=== PATIENT | male | born 1975 | race Caucasian/White ===

== ENCOUNTER 2019-01-10 14:48 | Inpatient (IN) | payer OTHER ==
[2019-01-10] MEDS ORDERED: NACL 0.9% 1000 ML IV ONE ×2 (15:06→15:10)
--- NOTE | 2019-01-10 15:06 | Emergency Department Report ---
Chief Complaint: Abdominal Pain Stated Complaint: RT LEG SHARP PAIN Time Seen by Provider: 01/10/19 15:03 - HPI History of Present Illness: rlq pain, upon waking n/v n bm yesterday no fever at home rx none pmh none psh none no cig/drugs/ etoh mom aw dad aw mse completed MSE screening note: Focused history and physical exam performed. Due to findings the following was ordered: ED Disposition for MSE Condition: Stable
[2019-01-10] MEDS ORDERED: MAXIPIME/NS 2 GM/100 ML 2 GM/100 ML BAG IV ONE (15:10)
[2019-01-10] MEDS ORDERED: FLAGYL 500 MG/100 ML 500 MG/100 ML BAG IV ONE (15:11)
[2019-01-10] MEDS ORDERED: TYLENOL PO ONE (15:23)
[2019-01-10] MEDS ORDERED: TYLENOL ONE (15:25)
--- NOTE | 2019-01-10 15:40 | Emergency Department Report ---
HPI - General Chief Complaint: Abdominal Pain Time Seen by Provider: 01/10/19 15:03 - HPI HPI: 43-year-old male presents to the emergency department with complaint of a one-day history of right lower quadrant abdominal pain, shortness of breath, mild cough, fever. He presents as a "sepsis. He is visiting here from [place] and has been here since the of this month, 11 days ago. He denies any past medical history. He denies any tobacco or illicit drug use or abuse. He has not taken anything for his symptoms prior to presentation. He has one episode of associated nausea and vomiting. He denies any problems with urination or bowel movements. ED Past Medical Hx - Past Medical History Previous Medical History?: No - Surgical History Past Surgical History?: No - Social History Smoking Status: Never Smoker Substance Use Type: None ED Review of Systems ROS: Stated complaint: RT LEG SHARP PAIN Other details as noted in HPI Constitutional: chills, fever Eyes: denies: eye pain, vision change ENT: denies: ear pain, throat pain Respiratory: cough, shortness of breath Cardiovascular: denies: chest pain, edema Gastrointestinal: abdominal pain, nausea, vomiting Genitourinary: denies: dysuria, discharge Musculoskeletal: denies: back pain, arthralgia Skin: denies: rash, lesions Neurological: denies: headache, weakness Physical Exam - Physical Exam Vital Signs: Vital Signs 01/10/19 15:06 Temperature 102.2 F H Pulse Rate 136 H Respiratory 20 Rate Blood Pressure 115/71 O2 Sat by Pulse 93 Oximetry ED Course Vital Signs 01/10/19 15:06 Temperature 102.2 F H Pulse Rate 136 H Respiratory 20 Rate Blood Pressure 115/71 O2 Sat by Pulse 93 Oximetry - Consultations Consultation #1: Last night I had spoken to the general surgeon, Dr. Whitaker, regarding the patient's CT findings of acute appendicitis as well as his full case presentation. Dr. Whitaker asked that the patient continue being resuscitated overnight and he will most likely taken to the operating room Thursday01/11/19 10:24 ED Medical Decision Making - Lab Data Result diagrams: 01/10/19 15:20 01/10/19 15:20 - EKG Data -: EKG Interpreted by Me EKG shows normal: sinus rhythm (PACs), axis, intervals, QRS complexes, ST-T waves (there is some early repolarization) Rate: tachycardia (129 bpm) - EKG Data When compared to previous EKG there are: previous EKG unavailable Interpretation: other (sinus tachycardia, normal axis, normal intervals, PACs, early repolarization) - Radiology Data Radiology results: report reviewed, image reviewed interpreted by me: Chest x-ray does not show any pneumothorax, pleural effusion, pneumonia or obvious focal consolidation. Abdominal x-ray shows nonspecific nonobstructive bowel gas PROCEDURE: CT ANGIO CHEST TECHNIQUE: Following administration of IV contrast axial helical imaging was performed through the chest with maximum intensity projection images obtained. HISTORY: SOB, elevated dimer COMPARISONS: CT abdomen and pelvis also performed today FINDINGS: Visualization of fine detail is somewhat limited by motion artifact. There is dependent atelectasis in both lung bases. There is no evidence of infiltrate, pneumothorax or pleural fluid collection. The trachea and bronchi are patent. The heart appears to be normal size. The thoracic aorta is normal in appearance. There is no evidence of pathologic intrathoracic adenopathy by CT size criteria. No filling defects are demonstrated within the central pulmonary arteries. However, evaluation for the presence or absence of segmental pulmonary artery emboli is significantly limited by motion artifact. Segmental pulmonary artery emboli could be missed or overcalled due to motion artifact. The visualized portion of the upper abdomen is notable for evidence of fatty infiltration of the liver. The bony structures are unremarkable. IMPRESSION: 1. Study degraded by motion artifact. 2. No definite evidence of an acute intrathoracic process. 3. No evidence of central pulmonary artery emboli. However, segmental pulmonary artery emboli could be missed or overcall due to motion artifact. This document is electronically signed by Misa Ahumada MD., January 10 2019 07:44:14 PM ET Transcribed By: ED Dictated By: MISA AHUMADA MD Electronically Authenticated By: MISA AHUMADA MD Signed Date/Time: 01/10/191944 PROCEDURE: CT ABDOMEN PELVIS W CON TECHNIQUE: Computerized axial tomography of the abdomen and pelvis was performed after the IV injection of iodinated nonionic contrast. HISTORY: RLQ abd pain COMPARISONS: None . FINDINGS: Visualized lower thorax: No significant abnormality. Liver: There is low-attenuation of the liver, compatible with fatty infiltration. Spleen: Normal size and attenuation. Gallbladder and biliary system: Normal. Pancreas: Normal. Adrenals: Normal. Kidneys: Normal. GI tract: The appendix is abnormally dilated and fluid-filled, measuring up to 1.5 cm in caliber. There is surrounding inflammation. Findings are compatible with acute appendicitis. No evidence of extraluminal air or abscess. No bowel obstruction or other areas of inflammation . Lymph nodes and mesentery: Normal. Vasculature: Normal.. Bladder: Normal. Reproductive organs: Normal. Peritoneum: No free fluid. Musculoskeletal structures: No significant abnormality. Other: None . IMPRESSION: Acute appendicitis. No evidence of extraluminal air or abscess. Findings were discussed by telephone with Dr. Hayes at 7:18 PM central standard time on 01/10/2019 Fatty infiltration of the liver . This document is electronically signed by Smitha Meneses MD., January 10 2019 08:21:48 PM ET Transcribed By: [facility] Dictated By: SMITHA MENESES M.D. Electronically Authenticated By: SMITHA MENESES M.D. Signed Date/Time: 01/10/192022 - Medical Decision Making This patient presents to the emergency department with complaint of right lower quadrant abdominal pain, shortness of breath, fever, tachycardia, nausea and vomiting. He presents as a "sepsis. He was started on a cephalosporin and Flagyl through triage. He was given 3.5 L of IV fluid for resuscitation. He was given Tylenol as an antipyretic. The majority of his labs came back unremarkable. He did have an elevated lactic acid level but upon repeat testing it was in the normal range. Chest x-ray and abdominal x-ray did not show any acute processes. The patient did have a very elevated d-dimer level so a CT angiography of the chest was done that did not show any signs of any pulmonary embolism, dissection, pneumonia. Due to the right lower quadrant abdominal pain with his other associated symptoms, a CT of the abdomen and pelvis with IV contrast was done and came back showing acute appendicitis. The general surgeon was contacted and has requested that the patient be admitted to the hospitalist service and continue resuscitation overnight and he will go to the OR in the morning. - Differential Diagnosis sepsis, pneumonia, appendicitis, colitis Critical Care Time: Yes Critical care time in (mins) excluding proc time.: 35 Critical care attestation.: If time is entered above; I have spent that time in minutes in the direct care of this critically ill patient, excluding procedure time. Critical care time spent on this patient and during his initial evaluation, multiple re- evaluations, ordering and interpretation of labs and imaging, discussion with the general surgeon and discussion with the patient/family. Critical Care Time: 35 minutes ED Disposition Clinical Impression: Volume depletion Acute appendicitis Qualifiers: Acute appendicitis type: with localized peritonitis Appendicitis gangrene presence: without gangrene Appendicitis perforation presence: without perforation Appendicitis abscess presence: without abscess Qualified Code(s): K35.30 - Acute appendicitis with localized peritonitis, without perforation or gangrene Sepsis Qualifiers: Sepsis type: sepsis due to unspecified organism Qualified Code(s): A41.9 - Sepsis, unspecified organism Disposition: OP ADMIT IP TO THIS HOSP Is pt being admited?: Yes Condition: Serious
[2019-01-10 15:47] LABS: Hematocrit 49.9 % (35.5-45.6); Hemoglobin 16.9 gm/dl (11.8-15.2); Mean Corpuscular HGB Conc 34 % (32-34); Mean Corpuscular Hemoglobin 29 pg (28-32); Mean Corpuscular Volume 87 fl (84-94); Platelet Count 204 K/mm3 (140-440); Red Blood Count 5.76 M/mm3 (3.65-5.03); Red Cell Distribution Width 14.1 % (13.2-15.2)
[2019-01-10 16:04] LABS: Alanine Aminotransferase 76 units/L (7-56); Albumin 4.7 g/dL (3.9-5); BUN/Creatinine Ratio 10; Blood Urea Nitrogen 10 mg/dL (9-20); Calcium 9.3 mg/dL (8.4-10.2); Hemolysis Index 23
[2019-01-10 16:06] LABS: Bilirubin,Urine NEG (Negative); Blood,Urine MOD (Negative); Color,Urine Yellow (Yellow); Mucus,Urine 3+ /HPF; Urobilinogen,Urine < 2.0 mg/dL (<2.0)
--- NOTE | 2019-01-10 17:00 | XRay Report ---
PROCEDURE: XR CHEST 1V AP TECHNIQUE: Single frontal view of the chest HISTORY: sepsis COMPARISONS: None. FINDINGS: The cardiomediastinal silhouette is normal in appearance. The lungs are clear without focal consolidation. No pleural effusion or pneumothorax. No acute bony or soft tissue abnormality. IMPRESSION: No acute cardiopulmonary disease. This document is electronically signed by Josefa Roldan MD., January 10 2019 04:58:32 PM ET
[2019-01-10 17:09] LABS: Band Neutrophils # (Manual) 1.1 K/mm3; Basophils % (Manual) 0 % (0.0-1.8); Eosinophils % (Manual) 0 % (0.0-4.3); Total Cells Counted 100
[2019-01-10 17:10] LABS: RBC Morphology Normal
--- NOTE | 2019-01-10 17:39 | XRay Report ---
PROCEDURE: XR ABDOMEN 2V TECHNIQUE: Frontal views of the abdomen and pelvis in the supine and upright positions HISTORY: abd pain COMPARISONS: None FINDINGS: The bowel gas pattern is nonspecific with air in mildly distended loops of bowel in the abdomen and p dorothy with numerous air-fluid levels on the upright view. There is no evidence of pneumoperitoneum. The bony structures are unremarkable. The lung bases are notable for the appearance of atelectasis or infiltrate in both lung bases. IMPRESSION: 1. Nonspecific bowel gas pattern with numerous air-fluid levels on the upright view. CT abdomen and pelvis may be helpful for further evaluation. This document is electronically signed by Misa Ahumada MD., January 10 2019 05:37:25 PM ET
--- NOTE | 2019-01-10 19:45 | Cat Scan Report ---
PROCEDURE: CT ANGIO CHEST TECHNIQUE: Following administration of IV contrast axial helical imaging was performed through the c hest with maximum intensity projection images obtained. HISTORY: SOB, elevated dimer COMPARISONS: CT abdomen and pelvis also performed today FINDINGS: Visualization of fine detail is somewhat limited by motion artifact. There is dependent atelectasis in both lung bases. There is no evidence of infiltrate, pneumothorax or pleural fluid collection. The trachea and bronchi are patent. The heart appears to be normal size. The thoracic aorta is normal in appearance. There is no evidence of pathologic intrathoracic adenopathy by CT size criteria. No filling defects are demonstrated within the central pulmonary arteries. However, evaluation for th e presence or absence of segmental pulmonary artery emboli is significantly limited by motion artifac t. Segmental pulmonary artery emboli could be missed or overcalled due to motion artifact. The visualized portion of the upper abdomen is notable for evidence of fatty infiltration of the live r. The bony structures are unremarkable. IMPRESSION: 1. Study degraded by motion artifact. 2. No definite evidence of an acute intrathoracic process. 3. No evidence of central pulmonary artery emboli. However, segmental pulmonary artery emboli could b e missed or overcall due to motion artifact. This document is electronically signed by Misa Ahumada MD., January 10 2019 07:44:14 PM ET
--- NOTE | 2019-01-10 20:23 | Cat Scan Report ---
PROCEDURE: CT ABDOMEN PELVIS W CON TECHNIQUE: Computerized axial tomography of the abdomen and pelvis was performed after the IV inject ion of iodinated nonionic contrast. HISTORY: RLQ abd pain COMPARISONS: None . FINDINGS: Visualized lower thorax: No significant abnormality. Liver: There is low-attenuation of the liver, compatible with fatty infiltration. Spleen: Normal size and attenuation. Gallbladder and biliary system: Normal. Pancreas: Normal. Adrenals: Normal. Kidneys: Normal. GI tract: The appendix is abnormally dilated and fluid-filled, measuring up to 1.5 cm in caliber. Th ere is surrounding inflammation. Findings are compatible with acute appendicitis. No evidence of extr aluminal air or abscess. No bowel obstruction or other areas of inflammation . Lymph nodes and mesentery: Normal. Vasculature: Normal.. Bladder: Normal. Reproductive organs: Normal. Peritoneum: No free fluid. Musculoskeletal structures: No significant abnormality. Other: None . IMPRESSION: Acute appendicitis. No evidence of extraluminal air or abscess. Findings were discussed by telephone with Dr. Hayes at 7:18 PM central standard time on 01/10/2019 Fatty infiltration of the liver . This document is electronically signed by Smitha Meneses MD., January 10 2019 08:21:48 PM ET
[2019-01-10] MEDS ORDERED: NACL 0.9% 1000 ML 1,000 ML IV ONE ×2 (20:33→20:34)
--- NOTE | 2019-01-10 21:01 | Event Note ---
Date: 01/10/[address] Hayes[address] CT. Pt needs resuscitation. Requested that patient be admitted to hospitalists for resuscitation. Pt added on to tomorrow's OR schedule
[2019-01-10] MEDS ORDERED: ZOFRAN IV PRN (22:18)
[2019-01-10] MEDS ORDERED: TYLENOL PO PRN (22:18)
[2019-01-10] MEDS ORDERED: MORPHINE IV PRN (22:18)
[2019-01-10] MEDS: ZOSYN/NS 3.375GM/50ML 3.375 GM/50 ML BAG IV SCH (22:45)
[2019-01-10] MEDS: NACL 0.9% 1000 ML 1,000 ML IV SCH (23:57)
[2019-01-11] MEDS: ZOSYN/NS 3.375GM/50ML 3.375 GM/50 ML BAG IV SCH ×4 (05:20→21:58)
[2019-01-11] MEDS ORDERED: TYLENOL PR PRN (05:30)
--- NOTE | 2019-01-11 06:14 | History and Physical Report ---
CHIEF COMPLAINT: Abdominal pain. HISTORY OF PRESENT ILLNESS: The patient is a 43-year-old male, who came on a visit from [place] and has been having right lower quadrant abdominal pain going on for about 24 to 48 hours. There is also history of fever, mild cough and shortness of breath. The patient denied history of chest pain, denied history of diarrhea, but has history of nausea and vomiting and presented for evaluation. PAST MEDICAL HISTORY: Unremarkable. PAST SURGICAL HISTORY: Unremarkable. FAMILY HISTORY: Noncontributory. SOCIAL HISTORY: The patient does not smoke, does not drink alcohol and does not use illicit drugs. MEDICATIONS: The patient is not on any known medication. ALLERGIES: There are no known drug allergies. REVIEW OF SYSTEMS: CONSTITUTIONAL: There is fever. No chills and no diaphoresis. HEENT: There is no headache or sore throat. CARDIOVASCULAR SYSTEM: There is no chest pain or orthopnea. RESPIRATORY: Shortness of breath is present. Cough is present. GASTROINTESTINAL: Abdominal pain is present. Nausea and vomiting is present. There is no diarrhea and no constipation. NEUROLOGICAL SYSTEM: There is no numbness, no dizziness, no altered mental status. MUSCULOSKELETAL SYSTEM: There is no joint pain or swelling. DERMATOLOGICAL SYSTEM: There is no skin rash or itching. GENITOURINARY SYSTEM: There is no dysuria, hematuria or flank pain. Rest of system review is normal. PHYSICAL EXAMINATION: GENERAL: At the time of exam, the patient was found to be alert, oriented x 3 and not in acute distress. VITAL SIGNS: At the initial time of presentation showed temperature of 102.2 degrees Fahrenheit, pulse of 136, respirations 20, blood pressure 115/71, O2 sat of 93% on room air. HEENT: Showed pupils to be equal, round, reactive to light and accommodating. Extraocular muscles are intact. NECK: Supple with no JVD or carotid bruit. CARDIOVASCULAR: Showed normal first and second heart sounds with no gallops or murmurs. RESPIRATORY SYSTEM: Show good air entry on both sides of the lung with no abnormal breath sounds. GASTROINTESTINAL SYSTEM: Showed abdomen to be full, soft with tenderness in the right lower quadrant area and presence of rebound tenderness with no organomegaly was elicited and no rigidity was elicited. Bowel sound is normal. NEUROLOGICAL SYSTEM: Show no focal deficit. MUSCULOSKELETAL SYSTEM: Show no joint swelling or tenderness. DERMATOLOGICAL SYSTEM: Show no skin rash. GENITOURINARY SYSTEM: Showing no costovertebral angle tenderness. PERTINENT LABORATORY DATA AND IMAGING STUDIES: The patient had x-ray of the abdomen done that shows bowel gas pattern, which is nonspecific with air in mildly distended loops of bowel in the abdomen and pelvis with numerous air fluid levels on the upright view. The bony structures are unremarkable. The lung bases are notable for the appearance of atelectasis or infiltrate in both lung bases. The patient has CT angiogram of the chest done and CT angiogram of the chest shows that the study is degraded by motion artifact with no definite evidence of any acute intrathoracic process found and no evidence of central pulmonary artery emboli was found; however, the radiology said that segmental pulmonary artery emboli could be missed or overcalled due to motion artifact. The patient has CT of the abdomen and pelvis with contrast done that shows acute appendicitis with no evidence of extraluminal air or abscesses. The patient also had chest x-ray done that was unremarkable. Lab results, the patient's CBC showed elevated white count of 11,800 with elevated hemoglobin of 16.9 and elevated hematocrit of 49.9 with CBC differential showing elevated segmented neutrophil count of 86% and the patient's D-dimer level was high with a value of 2876. The patient's chemistry showed low sodium level of 133 with low chloride of 94.8 and lactic acid level was high with a value of 2.8. The patient's AST was normal and ALT is elevated with a value of 76. Urinalysis, the patient's urinalysis came back unremarkable. DIAGNOSES: 1. Acute appendicitis. 2. Sepsis. PLAN OF CARE: 1. The patient will be admitted to medical/surgical [facility]. 2. The patient will remain n.p.o. for possible surgical intervention this morning. 3. The patient will continue surgical consult with Dr. Mason Whitaker who is aware of the patient's presentation with acute appendicitis. 4. The patient will be on rectal Tylenol 650 mg every 4 hours as needed for fever and headache. 5. The patient will be on IV Zosyn 3.375 grams q. 6 hours. 6. The patient will be on IV normal saline running at 125 mL an hour. 7. The patient will be on IV morphine 2 mg every 3 hours as needed for pain and IV Zofran 4 mg every 8 hours as needed for nausea and vomiting. 8. The patient will be on CPAP at night since he uses CPAP at home. JOB# [id number] OCN/NTS
[2019-01-11] MEDS: NACL 0.9% 1000 ML 1,000 ML IV SCH (09:32)
[2019-01-11] MEDS ORDERED: DILAUDID IV PRN ×3 (10:48→17:15)
--- NOTE | 2019-01-11 10:48 | Consultation ---
History of Present Illness Consult date: 01/11/19 Reason for consult: abdominal pain Requesting physician: EMILY NEUMANN Chief complaint: RLQ abd pain - History of present illness History of present illness: 43yo M with sleep apnea presented with acute onset of right lower quadrant abdominal pain. Began yesterday morning. Associated with fevers, chills, nausea, vomiting. Pain has increased this morning. CT done by the emergency department showed evidence of acute appendicitis. No evidence of rupture. Past History Past Medical History: other (sleep apnea) Past Surgical History: No surgical history Social history: denies: smoking, alcohol abuse Family history: no significant family history Medications and Allergies Allergies Allergy/AdvReac Type Severity Reaction Status Date / Time No Known Allergies Allergy Unverified 01/10/19 14:51 Active Meds: Active Medications Acetaminophen (Tylenol) 650 mg [place] Q4H PRN PRN Reason: Fever >101 Hydromorphone HCl (Dilaudid) 2 mg IV ONCE ONE Stop: 01/11/19 11:01 Piperacillin Sod/Tazobactam Sod (Zosyn/Ns 3.375gm/50ml) 3.375 gm in 50 mls @ 100 mls/hr IV Q6H KIRA Last Admin: 01/11/19 09:29 Dose: 100 mls/hr Documented by: Sodium Chloride (Nacl 0.9% 1000 Ml) 1,000 mls @ 150 mls/hr IV DIRECT KIRA Last Admin: 01/11/19 09:32 Dose: 150 mls/hr Documented by: Sodium Chloride (Nacl 0.9% 1000 Ml) 1,000 mls @ 999 mls/hr IV BOLUS ONE Stop: 01/11/19 13:00 Morphine Sulfate (Morphine) 2 mg IV Q3H PRN PRN Reason: Pain, Moderate (4-6) Last Admin: 01/11/19 09:29 Dose: 2 mg Documented by: Ondansetron HCl (Zofran) 4 mg IV Q8H PRN PRN Reason: Nausea And Vomiting Review of Systems - Constitutional fever, chills, no chronic pain - Cardiovascular chest pain, no shortness of breath - Respiratory no cough - Gastrointestinal abdominal pain, nausea, vomiting, no hematemesis, no coffee ground emesis, no BRBPR, no melena, no hematochezia - Genitourinary urinary hesitancy, no dysuria - Muskuloskeletal no low back pain - Integumentary no rash, no sores, no wounds Exam Vital Signs Temp Pulse Resp BP Pulse Ox 102.2 F H 136 H 20 115/71 93 01/10/19 15:06 01/10/19 15:06 01/10/19 15:06 01/10/19 15:06 01/10/19 15:06 - General physical appearance Positive: well developed, well nourished, severe pain, other (haitian speaking. communicated via student success coach) - Eyes Positive: normal occular movement. Negative: icteric - Respiratory Positive: normal expansion, normal respiratory effort, clear to auscultation - Cardiovascular Rhythm: regular - Abdomen Abdomen: Present: soft, tender (in RLQ), bowel sounds hypoactive, distended (mild). Absent: guarding, rigid, wound, surgical scars - Integumentary no rash, no growths, no abnormal pigmentation - Neurologic Neurologic: alert and oriented to time, place and person - Psychiatric Psychiatric: appropriate mood/affect, intact judgment & insight Results - Labs 01/10/19 15:20 01/10/19 15:20 Abnormal lab results 01/10/19 01/10/19 01/10/19 Range/Units 15:20 15:20 15:20 WBC 11.8 H (4.5-11.0) K/mm3 RBC 5.76 H (3.65-5.03) M/mm3 Hgb 16.9 H (11.8-15.2) gm/dl Hct 49.9 H (35.5-45.6) % Seg Neuts % (Manual) 86.0 H (40.0-70.0) % Lymphocytes % (Manual) 4.0 L (13.4-35.0) % Seg Neutrophils # Man 10.1 H (1.8-7.7) K/mm3 Lymphocytes # (Manual) 0.5 L (1.2-5.4) K/mm3 D-Dimer (0-234) ng/mlDDU Sodium 133 L (137-145) mmol/L Chloride 94.8 L (98-107) mmol/L Glucose 119 H (75-100) mg/dL Lactic Acid 2.80 H* (0.7-2.0) mmol/L ALT 76 H (7-56) units/L 01/10/19 Range/Units 15:41 WBC (4.5-11.0) K/mm3 RBC (3.65-5.03) M/mm3 Hgb (11.8-15.2) gm/dl Hct (35.5-45.6) % Seg Neuts % (Manual) (40.0-70.0) % Lymphocytes % (Manual) (13.4-35.0) % Seg Neutrophils # Man (1.8-7.7) K/mm3 Lymphocytes # (Manual) (1.2-5.4) K/mm3 D-Dimer 2876.00 H (0-234) ng/mlDDU Sodium (137-145) mmol/L Chloride (98-107) mmol/L Glucose (75-100) mg/dL Lactic Acid (0.7-2.0) mmol/L ALT (7-56) units/L Diabetes panel 01/10/19 Range/Units 15:20 Sodium 133 L (137-145) mmol/L Potassium 4.1 (3.6-5.0) mmol/L Chloride 94.8 L (98-107) mmol/L Carbon Dioxide 22 (22-30) mmol/L BUN 10 (9-20) mg/dL Creatinine 1.0 (0.8-1.5) mg/dL Glucose 119 H (75-100) mg/dL Calcium 9.3 (8.4-10.2) mg/dL AST 29 (5-40) units/L ALT 76 H (7-56) units/L Alkaline Phosphatase 100 (35-129) units/L Total Protein 7.7 (6.3-8.2) g/dL Albumin 4.7 (3.9-5) g/dL Calcium panel 01/10/19 Range/Units 15:20 Calcium 9.3 (8.4-10.2) mg/dL Albumin 4.7 (3.9-5) g/dL Pituitary panel 01/10/19 Range/Units 15:20 Sodium 133 L (137-145) mmol/L Potassium 4.1 (3.6-5.0) mmol/L Chloride 94.8 L (98-107) mmol/L Carbon Dioxide 22 (22-30) mmol/L BUN 10 (9-20) mg/dL Creatinine 1.0 (0.8-1.5) mg/dL Glucose 119 H (75-100) mg/dL Calcium 9.3 (8.4-10.2) mg/dL Adrenal panel 01/10/19 Range/Units 15:20 Sodium 133 L (137-145) mmol/L Potassium 4.1 (3.6-5.0) mmol/L Chloride 94.8 L (98-107) mmol/L Carbon Dioxide 22 (22-30) mmol/L BUN 10 (9-20) mg/dL Creatinine 1.0 (0.8-1.5) mg/dL Glucose 119 H (75-100) mg/dL Calcium 9.3 (8.4-10.2) mg/dL Total Bilirubin 1.00 (0.1-1.2) mg/dL AST 29 (5-40) units/L ALT 76 H (7-56) units/L Alkaline Phosphatase 100 (35-129) units/L Total Protein 7.7 (6.3-8.2) g/dL Albumin 4.7 (3.9-5) g/dL - Imaging CT scan - abdomen: report reviewed, image reviewed CT scan - pelvis: report reviewed, image reviewed Assessment and Plan - Patient Problems (1) Acute appendicitis Current Visit: Yes Status: Acute Qualifiers: Acute appendicitis type: with localized peritonitis Appendicitis gangrene presence: without gangrene Appendicitis perforation presence: without perforation Appendicitis abscess presence: without abscess Qualified Code(s): K35.30 - Acute appendicitis with localized peritonitis, without perforation or gangrene Plan to address problem: Pt stable. Pt in need of lap appy. Procedure, risks, benefits discussed with aid of student success coach. All questions answered. Consent obtained. Will give additional fluid prior to surgery. Needs stronger pain meds - change to dilaudid. Add toradol. Keep NPO. To OR today. Time=30min
[2019-01-11] MEDS ORDERED: DILAUDID IV ONE (11:00)
[2019-01-11] MEDS ORDERED: NACL 0.9% 1000 ML 1,000 ML IV ONE (12:00)
[2019-01-11] MEDS ORDERED: TORADOL IV SCH (12:00)
--- NOTE | 2019-01-11 12:08 | Event Note ---
Date: 01/11/19 Patient with acute appendicitis. I have seen and examined him.To go to OR today.
[2019-01-11] MEDS ORDERED: LACTATED RINGERS 1,000 ML ONE (12:22)
[2019-01-11] MEDS: LACTATED RINGERS 1,000 ML IV SCH ×2 (12:30→20:07)
[2019-01-11] MEDS ORDERED: XYLOCAINE 1% 20 mL ONE (12:32)
[2019-01-11] MEDS ORDERED: MARCAINE 0.25% INFILTRATI ONE ×2 (12:32→14:26)
[2019-01-11] MEDS ORDERED: QUELICIN ONE (13:46)
[2019-01-11] MEDS ORDERED: XYLOCAINE MPF 2% ONE (13:46)
[2019-01-11] MEDS ORDERED: ZEMURON IV ONE (13:46)
[2019-01-11] MEDS ORDERED: DIPRIVAN 10 MG/ML IV ONE (13:46)
[2019-01-11] MEDS ORDERED: WATER FOR IRRIG STERILE IR ONE (14:26)
[2019-01-11] MEDS ORDERED: XYLOCAINE 1% 20 mL INFILTRATI ONE (14:26)
[2019-01-11] MEDS ORDERED: NACL 0.9% IR ONE ×2 (14:26→14:46)
--- NOTE | 2019-01-11 14:41 | Anesthesia Consultation ---
Anesthesia Consult and Med Hx Date of service: 01/11/19 - Airway Anesthetic Teeth Evaluation: Good ROM Head & Neck: Adequate Mental/Hyoid Distance: Adequate Mallampati Class: Class III Intubation Access Assessment: Possibly Difficult - Pulmonary Exam CTA: Yes - Cardiac Exam Cardiac Exam: RRR - Pre-Operative Health Status ASA Pre-Surgery Classification: ASA2 Proposed Anesthetic Plan: General - Pulmonary Hx Smoking: No Hx Asthma: No Hx Respiratory Symptoms: No - Cardiovascular System Hx Hypertension: No Hx Heart Attack/AMI: No - Central Nervous System CVA: No - Gastrointestinal Hx Gastroesophageal Reflux Disease: No - Endocrine Hx Renal Disease: No Hx Liver Disease: No Hx Insulin Dependent Diabetes: No Hx Thyroid Disease: No - Hematic Hx Anemia: No (elevated hematocrit) - Other Systems Hx Obesity: Yes - Additional Comments Anesthesia Medical History Comments: No nausea/vomiting today.
[2019-01-11] MEDS ORDERED: SUBLIMAZE IV PRN (14:42)
--- NOTE | 2019-01-11 14:42 | Anesthesia Day of Surgery ---
Anesthesia Day of Surgery - Day of Surgery Patient Examined: Yes Patient H&P Reviewed: Yes Patient is NPO: Yes
[2019-01-11] MEDS ORDERED: BLOXIVERZ ONE (15:24)
[2019-01-11] MEDS ORDERED: ZOFRAN ONE (15:24)
[2019-01-11] MEDS ORDERED: ROBINUL ONE (15:24)
[2019-01-11] MEDS ORDERED: SUBLIMAZE ONE (15:29)
[2019-01-11] MEDS ORDERED: NARCAN 0.4 MG/1 ML ONE (15:46)
[2019-01-11] MEDS ORDERED: NORCO 5/325 PO PRN (15:55)
--- NOTE | 2019-01-11 15:59 | Post Operative Note ---
Date of procedure: 01/12/19 (dictation:[id number]) Pre-op diagnosis: acute appendicitis Post-op diagnosis: other (ruptured appendicitis) Findings: markedly inflamed appendix with necrotic distal tip. purulent fluid surrounding appendix Procedure: lap appy 1400cc IVF 100cc UOP Anesthesia: GETA Surgeon: ARIEL BULL Roofing Layer: EMANUEL LOYA Estimated blood loss: 50-100ml (50cc) Pathology: list (appendix) Specimen disposition: to lab Condition: stable Disposition: PACU
[2019-01-11] MEDS ORDERED: LACTATED RINGERS 2,000 ML ONE (16:23)
--- NOTE | 2019-01-11 16:32 | XRay Report ---
KUB: 01/11/19 16:05 CLINICAL: Intraoperative exam for instrument count and lost sponge. FINDINGS: No instrument or sponge is identified. A drain with tubing is present. The bowel gas pattern is normal. IMPRESSION: Negative exam for retained sponge or instrument.
[2019-01-11] MEDS ORDERED: PROVENTIL IH ONE ×2 (17:03→19:45)
[2019-01-11] MEDS ORDERED: NACL 0.9% NEBU ONE (17:04)
[2019-01-11] MEDS ORDERED: ZOFRAN IV PRN (17:15)
[2019-01-12] MEDS ORDERED: ALUM-MAG HYDROX-SIMETH 200-200-20MG/5ML PO PRN (02:44)
[2019-01-12] MEDS: ZOSYN/NS 3.375GM/50ML 3.375 GM/50 ML BAG IV SCH ×4 (04:34→22:37)
[2019-01-12 06:05] LABS: Basophils % (Auto) 0.2 % (0.0-1.8); Eosinophils % (Auto) 0.1 % (0.0-4.3); Hematocrit 44.8 % (35.5-45.6); Hemoglobin 14.9 gm/dl (11.8-15.2); Lymphocytes # (Auto) 0.6 K/mm3 (1.2-5.4); Lymphocytes % (Auto) 4.5 % (13.4-35.0); Mean Corpuscular HGB Conc 33 % (32-34); Mean Corpuscular Hemoglobin 29 pg (28-32); Mean Corpuscular Volume 88 fl (84-94); Monocytes # (Auto) 1.2 K/mm3 (0.0-0.8); Monocytes % (Auto) 8.4 % (0.0-7.3); Platelet Count 137 K/mm3 (140-440); Red Blood Count 5.11 M/mm3 (3.65-5.03); Red Cell Distribution Width 14.4 % (13.2-15.2)
[2019-01-12 06:35] LABS: BUN/Creatinine Ratio 10; Blood Urea Nitrogen 11 mg/dL (9-20); Calcium 8.1 mg/dL (8.4-10.2); Hemolysis Index 25
--- NOTE | 2019-01-12 09:21 | Progress Note ---
Assessment and Plan - Patient Problems (1) Acute appendicitis Current Visit: Yes Status: Acute Qualifiers: Acute appendicitis type: with localized peritonitis Appendicitis gangrene presence: without gangrene Appendicitis perforation presence: without perforation Appendicitis abscess presence: without abscess Qualified Code(s): K35.30 - Acute appendicitis with localized peritonitis, without perforation or gangrene Plan to address problem: Pt stable - s/p lap appy - 01/11/19 - POD#1. Clinically looks better. Still very dehydrated. Drain output not concerning. Rec: 1) Must ambulate - he understands and is ready 2) advance to regular diet 3) bolus with 2L crystalloid and encourage liquid intake May discharge when vital signs normalize. Would send home on Augmentin to complete 7 day course. May f/u in office in 2 weeks. Please call with questions. 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 Subjective Date of service: 01/12/19 Patient Reports: Positive: feels better, pain is less, tolerating liquids well, other (binder is too tight). Negative: nausea, vomiting Objective Vital Signs - 12hr 01/11/19 01/12/19 01/12/19 23:27 00:31 01:24 Temperature 102.0 F H 99.5 F Pulse Rate 116 H Respiratory 28 H Rate Blood Pressure 114/70 Blood Pressure [Left] O2 Sat by Pulse 96 93 Oximetry 01/12/19 01/12/19 01/12/19 03:53 05:10 06:23 Temperature 99.7 F H Pulse Rate 115 H 115 H Respiratory 26 H Rate Blood Pressure 124/87 Blood Pressure [Left] O2 Sat by Pulse 92 96 Oximetry 01/12/19 08:00 Temperature 98.2 F Pulse Rate 119 H Respiratory 20 Rate Blood Pressure Blood Pressure 120/85 [Left] O2 Sat by Pulse 94 Oximetry - General physical appearance no distress, no pain, other (looks better) - Respiratory normal expansion, normal respiratory effort - Abdomen soft, not tender, distended, surgical scars (C/D/I), other (NARDA drain has some thick yellowish drainage. ) - Psychiatric oriented to time, oriented to person, oriented to place, speech is normal, memory intact - Labs 01/12/19 05:24 01/12/19 05:24 Diabetes panel 01/12/19 Range/Units 05:24 Sodium 141 D (137-145) mmol/L Potassium 4.4 (3.6-5.0) mmol/L Chloride 104.8 (98-107) mmol/L Carbon Dioxide 22 (22-30) mmol/L BUN 11 (9-20) mg/dL Creatinine 1.1 (0.8-1.5) mg/dL Glucose 133 H (75-100) mg/dL Calcium 8.1 L (8.4-10.2) mg/dL Calcium panel 01/12/19 Range/Units 05:24 Calcium 8.1 L (8.4-10.2) mg/dL Pituitary panel 01/12/19 Range/Units 05:24 Sodium 141 D (137-145) mmol/L Potassium 4.4 (3.6-5.0) mmol/L Chloride 104.8 (98-107) mmol/L Carbon Dioxide 22 (22-30) mmol/L BUN 11 (9-20) mg/dL Creatinine 1.1 (0.8-1.5) mg/dL Glucose 133 H (75-100) mg/dL Calcium 8.1 L (8.4-10.2) mg/dL Adrenal panel 01/12/19 Range/Units 05:24 Sodium 141 D (137-145) mmol/L Potassium 4.4 (3.6-5.0) mmol/L Chloride 104.8 (98-107) mmol/L Carbon Dioxide 22 (22-30) mmol/L BUN 11 (9-20) mg/dL Creatinine 1.1 (0.8-1.5) mg/dL Glucose 133 H (75-100) mg/dL Calcium 8.1 L (8.4-10.2) mg/dL
--- NOTE | 2019-01-12 12:09 | Operative Report ---
PREOPERATIVE DIAGNOSIS: Acute appendicitis. POSTOPERATIVE DIAGNOSIS: Acute ruptured appendicitis. PROCEDURE: Laparoscopic appendectomy. ATTENDING PHYSICIAN: Mason Whitaker MD. TANDEM MILL OPERATOR: Dr. Reyes. ANESTHESIA: General. ESTIMATED BLOOD LOSS: 50 mL. FLUIDS: 1400 mL. URINE OUTPUT: 100 mL. FINDINGS: Inflamed appendix with normal base and necrotic distal tip. Purulent fluid was found in the right gutter and pelvis. SPECIMEN: Appendix. DRAINS: 15-Frisian NARDA drain was left in the right gutter going into the pelvis. COMPLICATIONS: None. DISPOSITION: Stable, transferred to Recovery Room. INDICATIONS: This is a 43-year-old male, who presented to the Emergency Department with a less than 24-hour history of abdominal pain associated with nausea and vomiting. Evaluation revealed acute appendicitis. The patient was severely dehydrated, admitted for resuscitation and preoperative preparation. The patient assessed to be in need for laparoscopic appendectomy. Procedure, risks, benefits were explained to the patient. Risks included but were not limited to infection, bleeding, pain, injury to surrounding structures, possibly for open surgery, possible need for further procedures in the future. The patient understood and consented. All questions were answered. Consent was done as well as history taking with the aid of an learning operations specialist. OPERATIVE NOTE: The patient was brought to the operating room and placed on the table in supine position. After adequate general anesthesia was established, the patient was prepped and draped in usual sterile fashion. Antibiotics have been administered prior to start of the case. SCDs were in place. Time-out was called. I began by placing a Veress needle in left upper quadrant. I was able to insufflate on the first attempt. A 12 mm port was placed in the left lower quadrant. Using the Optiview technique, I entered the peritoneal cavity safely. The area under the Veress needle had not been injured. Veress needle was removed. We put two 5 mm ports under direct vision, one in the midline suprapubic area, another one in the midline supraumbilical area, we identified quickly where the appendix was. As noted in the CT, it was retrocecal. I had to mobilize the colon medially. This was difficult due to all of the inflammation and adhesions that were there. We took our time as not to injure the appendix, especially at the base or the colon. We gradually freed up the appendix as it was sitting underneath the colon. This required extra time; however, we were able to eventually free it. The mesoappendix was completely inflamed, but once we identified the base, and it was healthy enough for a staple line. We then inserted a 45 mm laparoscopic stapler with a blue load. I created a window at the base of the appendix and then placed the stapler over the base. I was trying to get into the window; however, it was a bit difficult and therefore, I covered the entire base and then extended the stapler little bit into the mesoappendix and then fired the stapler. We clamped it for about 15 seconds to allow any tissue edema to be pushed out of the way and then fired the stapler. We then used the Harmonic scalpel to divide the mesoappendix. We did have a little bit of bleeding that was not pulsatile. We figured this must be venous. We tried a couple attempts at getting controlled with the Harmonic scalpel. Eventually, I just packed it with gauze. We placed the specimen in the EndoCatch bag, left on the side. We thoroughly irrigated out the right gutter, right upper quadrant and pelvis. There was minimal fluid on the left side. We had turned the patient to the left and eventually in a reverse Trendelenburg to try to get all the fluid on in one location. After thorough irrigation was done, we reexamined the area, where we had noted the bleeding. It was completely hemostatic. We did pull the colon back medially again to make sure that we were able to adequately visualize that space, and we saw no evidence of any bleeding. We did irrigate that area again and there was no recurrence, so I think this was a very small venous vessel that was able to clot on its own. We felt that with all the purulent material, it would be best to leave a drain in place. Therefore, through the supraumbilical port, we passed a 15-Frisian drain and then placed it in the right gutter going into the pelvis and then we directed our attention to removing the specimen from the left lower quadrant port site. We did have to stretch out the fascia a little bit, but we were able to remove it. We made one attempt to see if we could close the fascia with the Heath-Torsten device. However, we did not have enough space in order to do that. Therefore, we opted for the more conservative/safer method of closing it using open technique. Using an 0 Vicryl stitch, I closed the fascia with an open technique with a very good closure. We removed the other ports. The abdomen had been completely desufflated. Additional local was injected into the 12 mm port site. The skin sites were closed with 4-0 Monocryl subcuticular stitches. Skin was cleaned and dried, dressings were placed. The drain was secured with 3-0 nylon stitch. The patient tolerated the procedure well. JOB# [id number] JODI/MIKAEL
--- NOTE | 2019-01-12 12:34 | Progress Note ---
Assessment and Plan Assessment and plan: Acute appendicitis s/p lap appendectomy yesterday 01/11/[address] Quinonez Sepsis due to acute appendicitis Continue Zosyn iv Blood culturesd 1 in 2 growing Gram neg rods Sinus tachycardia Start iv fluids Hyponatremia iv fluids Full code status discussed with Dr. quinonez History Interval history: Feels better Appendectomy yesterday Hospitalist Physical - Physical exam Narrative exam: GEN: Not in acute distress, lying in bed, HEENT: Normocephalic, atraumatic, Neck: supple, No JVD heart: S1 and S2 reg, no murmurs, rubs or gallop Lungs: Decreased breath sounds bilaterally, rhonchi bilateral, wheeze Abd:soft, mild tender at surgical site,non tender, non distended, normal bowel sounds Ext: No edema,no clubbing, no cyanosis, Neuro:Awake,alert,oriented X 3, no focal signs, moves all ext Psych: normal mood - Constitutional Vitals: Temp Pulse Resp BP Pulse Ox 98.2 F 119 H 20 120/85 96 01/12/19 08:00 01/12/19 08:00 01/12/19 08:00 01/12/19 08:00 01/12/19 09:10 Results - Labs CBC & Chem 7: 01/12/19 05:24 01/12/19 05:24 Labs: Laboratory Last Values WBC 14.0 K/mm3 (4.5-11.0) H 01/12/19 05:24 RBC 5.11 M/mm3 (3.65-5.03) H 01/12/19 05:24 Hgb 14.9 gm/dl (11.8-15.2) 01/12/19 05:24 Hct 44.8 % (35.5-45.6) 01/12/19 05:24 MCV 88 fl (84-94) 01/12/19 05:24 MCH 29 pg (28-32) 01/12/19 05:24 MCHC 33 % (32-34) 01/12/19 05:24 RDW 14.4 % (13.2-15.2) 01/12/19 05:24 Plt Count 137 K/mm3 (140-440) L 01/12/19 05:24 Lymph % (Auto) 4.5 % (13.4-35.0) L 01/12/19 05:24 Rowan % (Auto) 8.4 % (0.0-7.3) H 01/12/19 05:24 Eos % (Auto) 0.1 % (0.0-4.3) 01/12/19 05:24 Baso % (Auto) 0.2 % (0.0-1.8) 01/12/19 05:24 Lymph # 0.6 K/mm3 (1.2-5.4) L 01/12/19 05:24 Rowan # 1.2 K/mm3 (0.0-0.8) H 01/12/19 05:24 Eos # 0.0 K/mm3 (0.0-0.4) 01/12/19 05:24 Baso # 0.0 K/mm3 (0.0-0.1) 01/12/19 05:24 Add Manual Diff Complete 01/10/19 15:20 Total Counted 100 01/10/19 15:20 Seg Neutrophils % 86.8 % (40.0-70.0) H 01/12/19 05:24 Seg Neuts % (Manual) 86.0 % (40.0-70.0) H 01/10/19 15:20 Band Neutrophils % 9.0 % 01/10/19 15:20 Lymphocytes % (Manual) 4.0 % (13.4-35.0) L 01/10/19 15:20 Reactive Lymphs % (Man) 0 % 01/10/19 15:20 Monocytes % (Manual) 1.0 % (0.0-7.3) 01/10/19 15:20 Eosinophils % (Manual) 0 % (0.0-4.3) 01/10/19 15:20 Basophils % (Manual) 0 % (0.0-1.8) 01/10/19 15:20 Metamyelocytes % 0 % 01/10/19 15:20 Myelocytes % 0 % 01/10/19 15:20 Promyelocytes % 0 % 01/10/19 15:20 Blast Cells % 0 % 01/10/19 15:20 Nucleated RBC % Not Reportable 01/10/19 15:20 Seg Neutrophils # 12.1 K/mm3 (1.8-7.7) H 01/12/19 05:24 Seg Neutrophils # Man 10.1 K/mm3 (1.8-7.7) H 01/10/19 15:20 Band Neutrophils # 1.1 K/mm3 01/10/19 15:20 Lymphocytes # (Manual) 0.5 K/mm3 (1.2-5.4) L 01/10/19 15:20 Abs React Lymphs (Man) 0.0 K/mm3 01/10/19 15:20 Monocytes # (Manual) 0.1 K/mm3 (0.0-0.8) 01/10/19 15:20 Eosinophils # (Manual) 0.0 K/mm3 (0.0-0.4) 01/10/19 15:20 Basophils # (Manual) 0.0 K/mm3 (0.0-0.1) 01/10/19 15:20 Metamyelocytes # 0.0 K/mm3 01/10/19 15:20 Myelocytes # 0.0 K/mm3 01/10/19 15:20 Promyelocytes # 0.0 K/mm3 01/10/19 15:20 Blast Cells # 0.0 K/mm3 01/10/19 15:20 WBC Morphology Not Reportable 01/10/19 15:20 Hypersegmented Neuts Not Reportable 01/10/19 15:20 Hyposegmented Neuts Not Reportable 01/10/19 15:20 Hypogranular Neuts Not Reportable 01/10/19 15:20 Smudge Cells Not Reportable 01/10/19 15:20 Toxic Granulation Not Reportable 01/10/19 15:20 Toxic Vacuolation Not Reportable 01/10/19 15:20 Dohle Bodies Not Reportable 01/10/19 15:20 Pelger-Huet Anomaly Not Reportable 01/10/19 15:20 Edwin Rods Not Reportable 01/10/19 15:20 Platelet Estimate Appears normal 01/10/19 15:20 Clumped Platelets Not Reportable 01/10/19 15:20 Plt Clumps, EDTA Not Reportable 01/10/19 15:20 Large Platelets Not Reportable 01/10/19 15:20 Giant Platelets Not Reportable 01/10/19 15:20 Platelet Satelliting Not Reportable 01/10/19 15:20 Plt Morphology Comment Not Reportable 01/10/19 15:20 RBC Morphology Normal 01/10/19 15:20 Dimorphic RBCs Not Reportable 01/10/19 15:20 Polychromasia Not Reportable 01/10/19 15:20 Hypochromasia Not Reportable 01/10/19 15:20 Poikilocytosis Not Reportable 01/10/19 15:20 Anisocytosis Not Reportable 01/10/19 15:20 Microcytosis Not Reportable 01/10/19 15:20 Macrocytosis Not Reportable 01/10/19 15:20 Spherocytes Not Reportable 01/10/19 15:20 Pappenheimer Bodies Not Reportable 01/10/19 15:20 Sickle Cells Not Reportable 01/10/19 15:20 Target Cells Not Reportable 01/10/19 15:20 Tear Drop Cells Not Reportable 01/10/19 15:20 Ovalocytes Not Reportable 01/10/19 15:20 Helmet Cells Not Reportable 01/10/19 15:20 [place] Bodies Not Reportable 01/10/19 15:20 [place] Rings Not Reportable 01/10/19 15:20 Radha Cells Not Reportable 01/10/19 15:20 Bite Cells Not Reportable 01/10/19 15:20 Crenated Cell Not Reportable 01/10/19 15:20 Elliptocytes Not Reportable 01/10/19 15:20 Acanthocytes (Spur) Not Reportable 01/10/19 15:20 Rouleaux Not Reportable 01/10/19 15:20 Hemoglobin C Crystals Not Reportable 01/10/19 15:20 Schistocytes Not Reportable 01/10/19 15:20 Malaria parasites Not Reportable 01/10/19 15:20 Cyril Bodies Not Reportable 01/10/19 15:20 Hem Pathologist Commnt No 01/10/19 15:20 D-Dimer 2876.00 ng/mlDDU (0-234) H 01/10/19 15:41 VBG pH 7.392 (7.320-7.420) 01/10/19 15:41 Sodium 141 mmol/L (137-145) D 01/12/19 05:24 Potassium 4.4 mmol/L (3.6-5.0) 01/12/19 05:24 Chloride 104.8 mmol/L (98-107) 01/12/19 05:24 Carbon Dioxide 22 mmol/L (22-30) 01/12/19 05:24 Anion Gap 19 mmol/L 01/12/19 05:24 BUN 11 mg/dL (9-20) 01/12/19 05:24 Creatinine 1.1 mg/dL (0.8-1.5) 01/12/19 05:24 Estimated GFR > 60 ml/min 01/12/19 05:24 BUN/Creatinine Ratio 10 % 01/12/19 05:24 Glucose 133 mg/dL (75-100) H 01/12/19 05:24 Lactic Acid 2.00 mmol/L (0.7-2.0) 01/10/19 17:54 Calcium 8.1 mg/dL (8.4-10.2) L 01/12/19 05:24 Total Bilirubin 1.00 mg/dL (0.1-1.2) 01/10/19 15:20 AST 29 units/L (5-40) 01/10/19 15:20 ALT 76 units/L (7-56) H 01/10/19 15:20 Alkaline Phosphatase 100 units/L (35-129) 01/10/19 15:20 Total Protein 7.7 g/dL (6.3-8.2) 01/10/19 15:20 Albumin 4.7 g/dL (3.9-5) 01/10/19 15:20 Albumin/Globulin Ratio 1.6 % 01/10/19 15:20 Urine Color Yellow (Yellow) 01/10/19 15:39 Urine Turbidity Clear (Clear) 01/10/19 15:39 Urine pH 5.0 (5.0-7.0) 01/10/19 15:39 Ur Specific [place] 1.027 (1.003-1.030) 01/10/19 15:39 Urine Protein 30 mg/dl mg/dL (Negative) 01/10/19 15:39 Urine Glucose (UA) Neg mg/dL (Negative) 01/10/19 15:39 Urine Ketones Neg mg/dL (Negative) 01/10/19 15:39 Urine Blood Mod (Negative) 01/10/19 15:39 Urine Nitrite Neg (Negative) 01/10/19 15:39 Urine Bilirubin Neg (Negative) 01/10/19 15:39 Urine Urobilinogen < 2.0 mg/dL (<2.0) 01/10/19 15:39 Ur Leukocyte Esterase Neg (Negative) 01/10/19 15:39 Urine WBC (Auto) 5.0 /HPF (0.0-6.0) 01/10/19 15:39 Urine RBC (Auto) 2.0 /HPF (0.0-6.0) 01/10/19 15:39 U Epithel Cells (Auto) < 1.0 /HPF (0-13.0) 01/10/19 15:39 Urine Mucus 3+ /HPF 01/10/19 15:39 Active Medications - Current Medications Current Medications: Generic Name Dose Route Start Last Admin Trade Name Freq PRN Reason Stop Dose Admin Acetaminophen 650 mg 01/11/19 05:30 01/12/19 00:[address] 650 mg Q4H PRN Administration Fever >101 Acetaminophen/Hydrocodone Bitart 2 each 01/11/19 15:55 Greer 5/325 PO Q6H PRN Pain, Moderate (4-6) Al Hydrox/Mg Hydrox/Simethicone 30 ml 01/12/19 02:44 01/12/19 02:55 Alum-Mag Hydrox-Simeth 527-434-86wo/5ml PO 30 ml Q6H PRN Administration Indigestion Fentanyl 50 mcg 01/11/19 14:42 Sublimaze IV Q5MIN PRN Pain , Severe (7-10) Hydromorphone HCl 0.5 mg 01/11/19 15:56 Dilaudid IV Q2H PRN Pain , Severe (7-10) Piperacillin Sod/Tazobactam Sod 3.375 gm in 50 mls @ 100 mls/hr 01/10/19 22:00 01/12/19 09:18 Zosyn/Ns 3.375gm/50ml IV 100 mls/hr Q6H KIRA Administration Sodium Chloride 1,000 mls @ 150 mls/hr 01/10/19 23:00 01/11/19 09:32 Nacl 0.9% 1000 Ml IV 150 mls/hr DIRECT KIRA Administration Lactated Ringer's 1,000 mls @ 999 mls/hr 01/12/19 10:00 Lactated Ringers IV 01/13/19 11:01 DIRECT KIRA Ondansetron HCl 4 mg 01/10/19 22:18 01/12/19 06:22 Zofran IV 4 mg Q8H PRN Administration Nausea And Vomiting Ondansetron HCl 4 mg 01/11/19 17:15 Zofran IV ONCE PRN Nausea And Vomiting
[2019-01-12] MEDS: LACTATED RINGERS 1,000 ML IV SCH (22:38)
[2019-01-13] MEDS: LACTATED RINGERS 1,000 ML IV SCH (00:47)
[2019-01-13] MEDS: ZOSYN/NS 3.375GM/50ML 3.375 GM/50 ML BAG IV SCH ×2 (04:28→09:11)
[2019-01-13 05:59] LABS: Hematocrit 43.3 % (35.5-45.6); Hemoglobin 14.7 gm/dl (11.8-15.2); Mean Corpuscular HGB Conc 34 % (32-34); Mean Corpuscular Hemoglobin 30 pg (28-32); Mean Corpuscular Volume 87 fl (84-94); Platelet Count 154 K/mm3 (140-440); Red Blood Count 4.96 M/mm3 (3.65-5.03); Red Cell Distribution Width 14.2 % (13.2-15.2)
[2019-01-13 06:13] LABS: BUN/Creatinine Ratio 8; Blood Urea Nitrogen 9 mg/dL (9-20); Calcium 8.4 mg/dL (8.4-10.2); Hemolysis Index 4
--- NOTE | 2019-01-13 11:51 | Progress Note ---
Assessment and Plan 43 yo M s/p laparoscopic appendectomy, POD 1 for acute perforated appendicitis Plan: 1. reg diet 2. continue IVF 3. continue antibiotics 4. encouraged ambulation 5. prn pain control Would continue to resuscitate patient as he is still tachycardic and appears dry. May discharge when vital signs normalize. Would send home on Augmentin to complete 7 day course. May f/u in office in 2 weeks. Please call with questions. Subjective Date of service: 01/13/19 Narrative: Pt seen and examined. c/o back pain. No f/c. No cp, sob. Abdominal pain is controlled. He is tolerating a diet. No n/v. He has been getting out of bed to walk. Objective Vital Signs - 12hr 01/12/19 01/13/19 01/13/19 23:58 04:54 08:07 Temperature 99.3 F 99.9 F H 99.7 F H Pulse Rate 118 H 109 H Respiratory 22 20 Rate Blood Pressure 123/88 124/86 O2 Sat by Pulse 97 98 Oximetry 01/13/19 08:08 Temperature Pulse Rate 106 H Respiratory 22 Rate Blood Pressure 144/81 O2 Sat by Pulse 98 Oximetry - General physical appearance Narrative Exam: Gen: AAOx3. NAD CV: s1, S2+ Resp: even and unlabored Abd: soft, mildly distended, NT. incisions c/d/i. NARDA drain serous, dressing with serosang drainage. Dressing changed. Ext: no c/c/e - Labs 01/13/19 04:52 01/13/19 04:52 Diabetes panel 01/13/19 Range/Units 04:52 Sodium 140 (137-145) mmol/L Potassium 4.2 (3.6-5.0) mmol/L Chloride 103.4 (98-107) mmol/L Carbon Dioxide 28 (22-30) mmol/L BUN 9 (9-20) mg/dL Creatinine 1.1 (0.8-1.5) mg/dL Glucose 116 H (75-100) mg/dL Calcium 8.4 (8.4-10.2) mg/dL Calcium panel 01/13/19 Range/Units 04:52 Calcium 8.4 (8.4-10.2) mg/dL Pituitary panel 01/13/19 Range/Units 04:52 Sodium 140 (137-145) mmol/L Potassium 4.2 (3.6-5.0) mmol/L Chloride 103.4 (98-107) mmol/L Carbon Dioxide 28 (22-30) mmol/L BUN 9 (9-20) mg/dL Creatinine 1.1 (0.8-1.5) mg/dL Glucose 116 H (75-100) mg/dL Calcium 8.4 (8.4-10.2) mg/dL Adrenal panel 01/13/19 Range/Units 04:52 Sodium 140 (137-145) mmol/L Potassium 4.2 (3.6-5.0) mmol/L Chloride 103.4 (98-107) mmol/L Carbon Dioxide 28 (22-30) mmol/L BUN 9 (9-20) mg/dL Creatinine 1.1 (0.8-1.5) mg/dL Glucose 116 H (75-100) mg/dL Calcium 8.4 (8.4-10.2) mg/dL
--- NOTE | 2019-01-13 13:03 | Progress Note ---
Assessment and Plan Assessment and plan: Acute appendicitis with perforation s/p lap appendectomy 01/11/[address] Whitaker Sepsis due to acute appendicitis with perforation Continue Zosyn iv Blood cultures 1 in 2 growing Bacteroides caccae Consult ID Physician Sinus tachycardia due to Sepsis, improving Continue iv fluids Hyponatremia iv fluids Full code status History Interval history: Feels better Less abd pain Palpitations Appendectomy on 01/11/19 Hospitalist Physical - Physical exam Narrative exam: GEN: Not in acute distress, lying in bed, Obese HEENT: Normocephalic, atraumatic, Neck: supple, No JVD heart: S1 and S2 reg tachy, no murmurs, rubs or gallop Lungs: Clear to auscultation bilat, no wheeze Abd:soft, mild tender at surgical site,non tender, non distended, normal bowel sounds Ext: No edema,no clubbing, no cyanosis, Neuro:Awake,alert,oriented X 3, no focal signs, moves all ext Psych: normal mood - Constitutional Vitals: Temp Pulse Resp BP Pulse Ox 98.4 F 111 H 22 118/59 95 01/13/19 12:26 01/13/19 12:25 01/13/19 12:25 01/13/19 12:25 01/13/19 12:25 Results - Labs CBC & Chem 7: 01/13/19 04:52 01/13/19 04:52 Labs: Laboratory Last Values WBC 14.1 K/mm3 (4.5-11.0) H 01/13/19 04:52 RBC 4.96 M/mm3 (3.65-5.03) 01/13/19 04:52 Hgb 14.7 gm/dl (11.8-15.2) 01/13/19 04:52 Hct 43.3 % (35.5-45.6) 01/13/19 04:52 MCV 87 fl (84-94) 01/13/19 04:52 MCH 30 pg (28-32) 01/13/19 04:52 MCHC 34 % (32-34) 01/13/19 04:52 RDW 14.2 % (13.2-15.2) 01/13/19 04:52 Plt Count 154 K/mm3 (140-440) 01/13/19 04:52 Lymph % (Auto) 4.5 % (13.4-35.0) L 01/12/19 05:24 [place] % (Auto) 8.4 % (0.0-7.3) H 01/12/19 05:24 Eos % (Auto) 0.1 % (0.0-4.3) 01/12/19 05:24 Baso % (Auto) 0.2 % (0.0-1.8) 01/12/19 05:24 Lymph # 0.6 K/mm3 (1.2-5.4) L 01/12/19 05:24 [place] # 1.2 K/mm3 (0.0-0.8) H 01/12/19 05:24 Eos # 0.0 K/mm3 (0.0-0.4) 01/12/19 05:24 Baso # 0.0 K/mm3 (0.0-0.1) 01/12/19 05:24 Add Manual Diff Complete 01/10/19 15:20 Total Counted 100 01/10/19 15:20 Seg Neutrophils % 86.8 % (40.0-70.0) H 01/12/19 05:24 Seg Neuts % (Manual) 86.0 % (40.0-70.0) H 01/10/19 15:20 Band Neutrophils % 9.0 % 01/10/19 15:20 Lymphocytes % (Manual) 4.0 % (13.4-35.0) L 01/10/19 15:20 Reactive Lymphs % (Man) 0 % 01/10/19 15:20 Monocytes % (Manual) 1.0 % (0.0-7.3) 01/10/19 15:20 Eosinophils % (Manual) 0 % (0.0-4.3) 01/10/19 15:20 Basophils % (Manual) 0 % (0.0-1.8) 01/10/19 15:20 Metamyelocytes % 0 % 01/10/19 15:20 Myelocytes % 0 % 01/10/19 15:20 Promyelocytes % 0 % 01/10/19 15:20 Blast Cells % 0 % 01/10/19 15:20 Nucleated RBC % Not Reportable 01/10/19 15:20 Seg Neutrophils # 12.1 K/mm3 (1.8-7.7) H 01/12/19 05:24 Seg Neutrophils # Man 10.1 K/mm3 (1.8-7.7) H 01/10/19 15:20 Band Neutrophils # 1.1 K/mm3 01/10/19 15:20 Lymphocytes # (Manual) 0.5 K/mm3 (1.2-5.4) L 01/10/19 15:20 Abs React Lymphs (Man) 0.0 K/mm3 01/10/19 15:20 Monocytes # (Manual) 0.1 K/mm3 (0.0-0.8) 01/10/19 15:20 Eosinophils # (Manual) 0.0 K/mm3 (0.0-0.4) 01/10/19 15:20 Basophils # (Manual) 0.0 K/mm3 (0.0-0.1) 01/10/19 15:20 Metamyelocytes # 0.0 K/mm3 01/10/19 15:20 Myelocytes # 0.0 K/mm3 01/10/19 15:20 Promyelocytes # 0.0 K/mm3 01/10/19 15:20 Blast Cells # 0.0 K/mm3 01/10/19 15:20 WBC Morphology Not Reportable 01/10/19 15:20 Hypersegmented Neuts Not Reportable 01/10/19 15:20 Hyposegmented Neuts Not Reportable 01/10/19 15:20 Hypogranular Neuts Not Reportable 01/10/19 15:20 Smudge Cells Not Reportable 01/10/19 15:20 Toxic Granulation Not Reportable 01/10/19 15:20 Toxic Vacuolation Not Reportable 01/10/19 15:20 Dohle Bodies Not Reportable 01/10/19 15:20 Pelger-Huet Anomaly Not Reportable 01/10/19 15:20 Edwin Rods Not Reportable 01/10/19 15:20 Platelet Estimate Appears normal 01/10/19 15:20 Clumped Platelets Not Reportable 01/10/19 15:20 Plt Clumps, EDTA Not Reportable 01/10/19 15:20 Large Platelets Not Reportable 01/10/19 15:20 Giant Platelets Not Reportable 01/10/19 15:20 Platelet Satelliting Not Reportable 01/10/19 15:20 Plt Morphology Comment Not Reportable 01/10/19 15:20 RBC Morphology Normal 01/10/19 15:20 Dimorphic RBCs Not Reportable 01/10/19 15:20 Polychromasia Not Reportable 01/10/19 15:20 Hypochromasia Not Reportable 01/10/19 15:20 Poikilocytosis Not Reportable 01/10/19 15:20 Anisocytosis Not Reportable 01/10/19 15:20 Microcytosis Not Reportable 01/10/19 15:20 Macrocytosis Not Reportable 01/10/19 15:20 Spherocytes Not Reportable 01/10/19 15:20 Pappenheimer Bodies Not Reportable 01/10/19 15:20 Sickle Cells Not Reportable 01/10/19 15:20 Target Cells Not Reportable 01/10/19 15:20 Tear Drop Cells Not Reportable 01/10/19 15:20 Ovalocytes Not Reportable 01/10/19 15:20 Helmet Cells Not Reportable 01/10/19 15:20 [place] Bodies Not Reportable 01/10/19 15:20 [place] Rings Not Reportable 01/10/19 15:20 Radha Cells Not Reportable 01/10/19 15:20 Bite Cells Not Reportable 01/10/19 15:20 Crenated Cell Not Reportable 01/10/19 15:20 Elliptocytes Not Reportable 01/10/19 15:20 Acanthocytes (Spur) Not Reportable 01/10/19 15:20 Rouleaux Not Reportable 01/10/19 15:20 Hemoglobin C Crystals Not Reportable 01/10/19 15:20 Schistocytes Not Reportable 01/10/19 15:20 Malaria parasites Not Reportable 01/10/19 15:20 [place] Bodies Not Reportable 01/10/19 15:20 Hem Pathologist Commnt No 01/10/19 15:20 D-Dimer 2876.00 ng/mlDDU (0-234) H 01/10/19 15:41 VBG pH 7.392 (7.320-7.420) 01/10/19 15:41 Sodium 140 mmol/L (137-145) 01/13/19 04:52 Potassium 4.2 mmol/L (3.6-5.0) 01/13/19 04:52 Chloride 103.4 mmol/L (98-107) 01/13/19 04:52 Carbon Dioxide 28 mmol/L (22-30) 01/13/19 04:52 Anion Gap 13 mmol/L 01/13/19 04:52 BUN 9 mg/dL (9-20) 01/13/19 04:52 Creatinine 1.1 mg/dL (0.8-1.5) 01/13/19 04:52 Estimated GFR > 60 ml/min 01/13/19 04:52 BUN/Creatinine Ratio 8 % 01/13/19 04:52 Glucose 116 mg/dL (75-100) H 01/13/19 04:52 Lactic Acid 2.00 mmol/L (0.7-2.0) 01/10/19 17:54 Calcium 8.4 mg/dL (8.4-10.2) 01/13/19 04:52 Total Bilirubin 1.00 mg/dL (0.1-1.2) 01/10/19 15:20 AST 29 units/L (5-40) 01/10/19 15:20 ALT 76 units/L (7-56) H 01/10/19 15:20 Alkaline Phosphatase 100 units/L (35-129) 01/10/19 15:20 Total Protein 7.7 g/dL (6.3-8.2) 01/10/19 15:20 Albumin 4.7 g/dL (3.9-5) 01/10/19 15:20 Albumin/Globulin Ratio 1.6 % 01/10/19 15:20 Urine Color Yellow (Yellow) 01/10/19 15:39 Urine Turbidity Clear (Clear) 01/10/19 15:39 Urine pH 5.0 (5.0-7.0) 01/10/19 15:39 Ur Specific [place] 1.027 (1.003-1.030) 01/10/19 15:39 Urine Protein 30 mg/dl mg/dL (Negative) 01/10/19 15:39 Urine Glucose (UA) Neg mg/dL (Negative) 01/10/19 15:39 Urine Ketones Neg mg/dL (Negative) 01/10/19 15:39 Urine Blood Mod (Negative) 01/10/19 15:39 Urine Nitrite Neg (Negative) 01/10/19 15:39 Urine Bilirubin Neg (Negative) 01/10/19 15:39 Urine Urobilinogen < 2.0 mg/dL (<2.0) 01/10/19 15:39 Ur Leukocyte Esterase Neg (Negative) 01/10/19 15:39 Urine WBC (Auto) 5.0 /HPF (0.0-6.0) 01/10/19 15:39 Urine RBC (Auto) 2.0 /HPF (0.0-6.0) 01/10/19 15:39 U Epithel Cells (Auto) < 1.0 /HPF (0-13.0) 01/10/19 15:39 Urine Mucus 3+ /HPF 01/10/19 15:39 Active Medications - Current Medications Current Medications: Generic Name Dose Route Start Last Admin Trade Name Freq PRN Reason Stop Dose Admin Acetaminophen 650 mg 01/11/19 05:30 01/12/19 00:16 Tylenol PA 650 mg Q4H PRN Administration Fever >101 Acetaminophen/Hydrocodone Bitart 2 each 01/11/19 15:55 [place] 5/325 PO Q6H PRN Pain, Moderate (4-6) Al Hydrox/Mg Hydrox/Simethicone 30 ml 01/12/19 02:44 01/12/19 02:55 Alum-Mag Hydrox-Simeth 799-453-63pc/5ml PO 30 ml Q6H PRN Administration Indigestion Hydromorphone HCl 0.5 mg 01/11/19 15:56 01/12/19 15:52 Dilaudid IV 0.5 mg Q2H PRN Administration Pain , Severe (7-10) Piperacillin Sod/Tazobactam Sod 3.375 gm in 50 mls @ 100 mls/hr 01/10/19 22:00 01/13/19 09:11 Zosyn/Ns 3.375gm/50ml IV 100 mls/hr Q6H KIRA Administration Sodium Chloride 1,000 mls @ 150 mls/hr 01/10/19 23:00 01/11/19 09:32 Nacl 0.9% 1000 Ml IV 150 mls/hr DIRECT KIRA Administration Ondansetron HCl 4 mg 01/11/19 17:15 Zofran IV ONCE PRN Nausea And Vomiting
--- NOTE | 2019-01-13 15:49 | Consultation ---
History of Present Illness - Reason for Consult Consult date: 01/13/19 bacteroides bacteremia Requesting physician: AYAN HILL - History of Present Illness 43 y/o male with history of obstructive sleep apnea; admitted on with 24 hour history of acute right lower quadrant abdominal pain associated with subjective fevers, chills, nausea, vomiting. Patient is in [place] vacationing from [place]. He is visiting cousins. He lives on [place] and was supposed to go back last week. He denies diarrhea, urinary symptoms. Denies tobacco, ETOH, drugs. In the ED, temp 102.2, HR 132, R 20, O2 sat 93%, BP 115/71. WBC 11.8, Hg 19, Plat 204. Creat 1. ALT 76. Lactate 2.8. UA neg. Blood culture 01/10/2019 Bacteroides caccae 2 of 4 bottles. CTA chest no PE. CT abdomen showed evidence of acute appendicitis. No evidence of rupture. Review of Systems: General: + fever, + chills, nightsweats, unintentional weight change, or change in appetite Cutaneous: no rash, pruritus Head: no headaches or injury Eyes: no changes in vision, eye pain, double vision Ears: no ear pain, ear discharge, ringing or hearing loss Nose: no nose bleeding, stuffiness Mouth & throat: no bleeding gums, no horseness, no dental problems, or swollen glands Neck: no pain, node enlargement/lumps, tyroid enlargement or tenderness Respiratory: no cough, wheezing, sputum, hemoptysis, pleuritic chest pain Cardiovascular: no chest pain, leg edema, cyanosis, DOYLE, orthopnea Musculoskeletal: no decreased joint motion, bone or joint pain, joint swelling, muscle aches Gastrointestinal: +abdominal pain, + nausea, + vomiting, hematemesis, diarrhea, constipation, melena, bright red blood in stools, fecal incontinence, jaundice Genitourinary/Reproductive: no frequent urination, dysuria, hematuria, incontinence Neurogical: no seizures, no headaches, no weakness, no paresthesias, no loss of speech or vision; no memory loss, no vertigo, no tremors, no numbness Psychiatric: stable mood; no excessive anxiety, sadness or moodiness Past History Past Medical History: other (sleep apnea) Past Surgical History: No surgical history Social history: denies: smoking, alcohol abuse Family history: no significant family history Medications and Allergies Allergies Allergy/AdvReac Type Severity Reaction Status Date / Time No Known Allergies Allergy Unverified 01/10/19 14:51 Home Medications Medication Instructions Recorded Confirmed Last Taken Type No Known Home Medications [No 01/11/19 01/11/19 Unknown History Reported Home Medications] Active Meds: Active Medications Acetaminophen (Tylenol) 650 mg ME Q4H PRN PRN Reason: Fever >101 Last Admin: 01/12/19 00:16 Dose: 650 mg Documented by: Acetaminophen/Hydrocodone Bitart ([place] 5/325) 2 each PO Q6H PRN PRN Reason: Pain, Moderate (4-6) Al Hydrox/Mg Hydrox/Simethicone (Alum-Mag Hydrox-Simeth 273-074-96lm/5ml) 30 ml PO Q6H PRN PRN Reason: Indigestion Last Admin: 01/12/19 02:55 Dose: 30 ml Documented by: Hydromorphone HCl (Dilaudid) 0.5 mg IV Q2H PRN PRN Reason: Pain , Severe (7-10) Last Admin: 01/12/19 15:52 Dose: 0.5 mg Documented by: Sodium Chloride (Nacl 0.9% 1000 Ml) 1,000 mls @ 150 mls/hr IV DIRECT KIRA Last Admin: 01/11/19 09:32 Dose: 150 mls/hr Documented by: Ampicillin Sodium/Sulbactam Sodium (Unasyn/Ns 3 Gm/100 Ml) 3 gm in 100 mls @ 200 mls/hr IV Q6HR KIRA Ondansetron HCl (Zofran) 4 mg IV ONCE PRN PRN Reason: Nausea And Vomiting Physical Examination - Physical Exam Narrative exam: General appearance: Alert in NAD, conversant Eyes: anicteric sclerae, moist conjunctivae; no lid-lag; PERRLA HENT: Atraumatic; oropharynx clear with moist mucous membranes and no mucosal ulcerations/no oral thrush; normal hard and soft palate. Normal external ears. Neck: Trachea midline; supple, no thyromegaly or lymphadenopathy Lungs: CTA, with normal respiratory effort and no intercostal retractions CV: RRR, no murmurs Abdomen: Soft, mild tenderness, lap surgical wound and drain with serous fluid Extremities: No peripheral edema or extremity lymphadenopathy Skin: Normal temperature, turgor and texture; no rash, ulcers or subcutaneous nodules Psych: Appropriate affect, alert and oriented to person, place and time. Neuro: alert and oriented x 3. Moving all extermities - Constitutional Vitals: Vital Signs Temp Pulse Resp BP Pulse Ox 98.4 F 111 H 22 118/59 97 01/13/19 12:26 01/13/19 12:25 01/13/19 12:25 01/13/19 12:25 01/13/19 13:52 Temperature -Last 24 Hours Temperature 98.4 F Temperature 98.4 F Temperature 99.7 F Temperature 99.9 F Temperature 99.3 F Temperature 98.7 F Temperature 98.6 F Results - Labs CBC & Chem 7: 01/13/19 04:52 01/13/19 04:52 Labs: Abnormal lab results 01/13/19 01/13/19 Range/Units 04:52 04:52 WBC 14.1 H (4.5-11.0) K/mm3 Glucose 116 H (75-100) mg/dL Assessment and Plan Blood culture 01/10/2019 Bacteroides caccae 2 of 4 bottles. Assessment: 43 y/o male with history of obstructive sleep apnea; admitted on 01/10/2019 with 24 hour history of acute right lower quadrant abdominal pain associated with subjective fevers, chills, nausea, vomitin) Sepsis: Present on admission, manifested by fever, tachycardia, leukocytosis, increased lactate. Etiology most likely acute perforated appendicitis with bacteremia. UA neg. CXR neg. 2) Acute perforated appendicitis: likely polymicrobial - CT abdomen showed evidence of acute appendicitis. No evidence of rupture. - S/P lap appendectomy on 01/11/2019. Path showed severe acute necrotizing appendicitis with perforation and periappendicitis. 3) Bacteroides bacteremia: from perf appendicitis. - Blood culture 01/10/2019 Bacteroides caccae 2 of 4 bottles. Recommendations: - obtain C-reactive protein (CRP) - stop zosyn - start unasyn - continue unasyn and ok to change to augmentin 857 mg PO BID for 10 days until 01/21/2019 Will follow. Amparo Arteaga MD Infectious Diseases [employer] [facility] M [phone] O [phone]
[2019-01-13] MEDS ORDERED: UNASYN/NS 3 GM/100 ML 3 GM/100 ML BAG IV SCH (18:00)
[2019-01-13] MEDS: NACL 0.9% 1000 ML 1,000 ML IV SCH (20:08)
[2019-01-13] MEDS: UNASYN/NS 3 GM/100 ML 3 GM/100 ML BAG IV SCH (21:36)
[2019-01-14] MEDS: NACL 0.9% 1000 ML 1,000 ML IV SCH ×2 (04:34→13:09)
[2019-01-14] MEDS: UNASYN/NS 3 GM/100 ML 3 GM/100 ML BAG IV SCH ×3 (04:37→18:06)
[2019-01-14 05:58] LABS: Hematocrit 42.6 % (35.5-45.6); Mean Corpuscular HGB Conc 33 % (32-34); Mean Corpuscular Hemoglobin 29 pg (28-32); Mean Corpuscular Volume 88 fl (84-94); Platelet Count 175 K/mm3 (140-440); Red Blood Count 4.86 M/mm3 (3.65-5.03); Red Cell Distribution Width 14.1 % (13.2-15.2)
--- NOTE | 2019-01-14 07:55 | Progress Note ---
Assessment and Plan Assessment and Plan Blood culture 01/10/2019 Bacteroides caccae 2 of 4 bottles. Assessment: 43 y/o male with history of obstructive sleep apnea; admitted on 01/10/2019 with 24 hour history of acute right lower quadrant abdominal pain associated with subjective fevers, chills, nausea, vomitin) Sepsis: Present on admission, Better. Still tachycardia. No fever, leukocytosis trending down. Etiology most likely acute perforated appendicitis with bacteremia. UA neg. CXR neg. -CRP 31.80 2) Acute perforated appendicitis: likely polymicrobial - CT abdomen showed evidence of acute appendicitis. No evidence of rupture. - S/P lap appendectomy on 01/11/2019. Path showed severe acute necrotizing appendicitis with perforation and periappendicitis. 3) Bacteroides bacteremia: from perf appendicitis. - Blood culture 01/10/2019 Bacteroides caccae 2 of 4 bottles. Recommendations: - continue unasyn 3 gm IV every 6 hours, D2 - Tolerating PO, ok to change to Augmentin 875 mg PO BID for 10 days until 01/21/2019 [facility] M: [phone] O:[phone] Subjective Date of service: 01/14/19 Interval history: Patient seen and examined. Sitting up in the bed eating breakfast, denied abdominal pain, SOB or rashes. No fever. Objective - Exam Narrative Exam: General appearance: Alert in NAD, conversant Eyes: anicteric sclerae, moist conjunctivae; no lid-lag; PERRLA HENT: Atraumatic; oropharynx clear with moist mucous membranes and no mucosal ulcerations/no oral thrush; normal hard and soft palate. Normal external ears. Neck: Trachea midline; supple, no thyromegaly or lymphadenopathy Lungs: CTA, with normal respiratory effort and no intercostal retractions CV: RRR, no murmurs Abdomen: Soft, mild tenderness, lap surgical wound and drain with serous fluid Extremities: No peripheral edema or extremity lymphadenopathy Skin: Normal temperature, turgor and texture; no rash, ulcers or subcutaneous nodules Psych: Appropriate affect, alert and oriented to person, place and time. Neuro: alert and oriented x 3. Moving all extermities - Constitutional Vitals: Vital Signs Temp Pulse Resp BP Pulse Ox 99.6 F 103 H 18 121/82 98 01/14/19 04:31 01/14/19 04:31 01/14/19 04:31 01/14/19 04:31 01/14/19 04:31 Temperature -Last 24 Hours Temperature 99.6 F Temperature 99.5 F Temperature 98.0 F Temperature 98.4 F Temperature 98.4 F Temperature 99.7 F - Labs CBC & Chem 7: 01/14/19 05:11 01/13/19 04:52 Labs: Abnormal lab results 01/13/19 01/14/19 Range/Units 04:52 05:11 WBC 12.2 H (4.5-11.0) K/mm3 C-Reactive Protein 31.80 H (0.00-1.30) mg/dL
[2019-01-14 12:56] VITALS: BP 136/87
--- NOTE | 2019-01-14 13:46 | Discharge Summary ---
Providers - Providers Date of Admission: 01/10/19 22:16 Date of discharge: 01/14/19 Attending physician: AYAN HILL 01/10/19 20:34 Consult to Physician [CONS] Routine Comment: Dr. Hayes spoke with Dr. Whitaker @ 2030 Consulting Provider: ARIEL WHITAKER Physician Instructions: Reason For Exam: appendicitis 01/13/19 13:26 Consult to Physician [CONS] Routine Comment: Consulting Provider: DOROTHY FONTENOT Physician Instructions: Reason For Exam: Sepsis, perforated appendix Primary care physician: [facility], Hospitalization Condition: Serious Core Measure Documentation - Palliative Care Palliative Care/ Comfort Measures: Not Applicable Exam - Constitutional Vitals: Temp Pulse Resp BP Pulse Ox 99.2 F 109 H 24 136/87 97 01/14/19 12:52 01/14/19 12:52 01/14/19 12:52 01/14/19 12:52 01/14/19 12:52 Plan Activity: no restrictions Diet: low fat, low cholesterol, low salt Additional Instructions: 1.Follow up with PCP or [facility] in 1 week. 2.Follow up with Dr. Whitaker in 1 week Follow up with: PRIMARY CARE, [Referring] - 3-5 Days Prescriptions: Amoxicillin/K Clav Tab [Augmentin 875 mg] 1 tab PO Q12HR #14 tab HYDROcodone/APAP 5-325 [[place] 5-325 mg TAB] 1 each PO Q6H PRN #12 tablet PRN Reason: Pain, Moderate (4-6)
--- NOTE | 2019-01-14 16:37 | Progress Note ---
Assessment and Plan - Patient Problems (1) Acute appendicitis Current Visit: Yes Status: Acute Qualifiers: Acute appendicitis type: with localized peritonitis Appendicitis gangrene presence: without gangrene Appendicitis perforation presence: without perforation Appendicitis abscess presence: without abscess Qualified Code(s): K35.30 - Acute appendicitis with localized peritonitis, without perforation or gangrene Plan to address problem: Pt stable - s/p lap appy - 01/11/19 - POD#4. Clinically looks better. Rec: 1) Must ambulate - he understands and is ready 2) diet as tolerated 3) d/c IVF May discharge when vital signs normalize. Would send home on Augmentin to complete 7 day course. May f/u in office in 1 week. Please call with questions. Spoke via phone front worker. Subjective Date of service: 01/14/19 Patient Reports: Positive: feels better, pain is less, tolerating a regular diet. Negative: nausea, vomiting Objective Vital Signs - 12hr 01/14/19 01/14/19 08:00 12:52 Temperature 99.2 F Pulse Rate 109 H Respiratory 24 Rate Blood Pressure 136/87 O2 Sat by Pulse 96 97 Oximetry - General physical appearance no distress, no pain, other (looks well) - Respiratory normal expansion, normal respiratory effort - Abdomen soft, not tender, not distended, not guarding, not rigid, other (NARDA with serous drainage) - Integumentary no rash, no growths, no abnormal pigmentation - Psychiatric oriented to time, oriented to person, oriented to place, speech is normal, memory intact - Labs 01/14/19 05:11 01/13/19 04:52
== END 2019-01-14 19:36 | disposition home or self-care (01) | DRG 853 ==
LOC: ED 14:48 → 4A 22:16 → 3A 01-13 17:19
PROVIDERS: ADMIT Internal Medicine; ATTEND Internal Medicine
PROC: 5A09457 Assistance with Respiratory Ventilation, 24-96 Consecutive Hours, Continuous Positive Airway Pressure (ICD-10-PCS; 2019-01-11)
PROC: 0DTJ4ZZ Resection of Appendix, Percutaneous Endoscopic Approach (ICD-10-PCS; principal; 2019-01-12)
DX: A41.9 Sepsis, unspecified organism (principal); K35.32 Acute appendicitis with perforation, localized peritonitis, and gangrene, without abscess; E87.1 Hypo-osmolality and hyponatremia; G47.30 Sleep apnea, unspecified
CPT/HCPCS: 36415; 71045; 71275; 74018; 74019; 74177; 80048; 80053; 81001; 82140; 82805; 82962; 85007; 85025; 85027; 85379; 86140; 87040; 87086; 88304; 93005; 93010; 94660; 94760; 96365; 99291; G0378; A4217; J0295; J0330; J0692; J1170; J2270; J2310; J2405; J2543; J2704; J2710; J3010; J7030; J7120; Q9967